=== PATIENT | male | born 1935 ===

== ENCOUNTER 2017-07-04 12:40 | Emergency (ER) | payer OTHER ==
[~2017-07-04] VITALS: Ht 172.7 cm; Wt 117.9 kg
[~2017-07-04 12:40] MED LIST: COZAAR50 MG; CRESTOR5 MG; GABAPENTIN600 MG; HUMALOG MIX 50/53 ML SQ; HYZAAR 100-251 UDTAB PO; LANTUS 30 UNIT; LIRICA; METFORMIN HCL850 MG; MICARDIS20 MG PO; NOVOLOG100 U/ML; ZOLOFT25 MG; [UNRECOGNIZED DRUG - OTHER]
[2017-07-04] MEDS ORDERED: FENOFIBRATE145 MG (13:12)
[2017-07-04] MEDS ORDERED: TOPROL XL100 M1 (13:12)
[2017-07-04] MEDS ORDERED: SULINDAC150 MG (13:13)
[2017-07-04] MEDS ORDERED: LANTUS SOL100 UNIT/1 (13:14)
[2017-07-04] MEDS ORDERED: HUMALOG100 UNIT/1 (13:15)
== END 2017-07-04 16:38 | disposition home or self-care (01) ==
LOC: ER 12:40
DX: S00.83XA Contusion of other part of head, initial encounter (principal); S20.211A Contusion of right front wall of thorax, initial encounter; S60.812A Abrasion of left wrist, initial encounter; W01.198A Fall on same level from slipping, tripping and stumbling with subsequent striking against other object, initial encounter; Y93.01 Activity, walking, marching and hiking; Y92.480 Sidewalk as the place of occurrence of the external cause; Y99.8 Other external cause status

== ENCOUNTER 2018-09-19 10:02 | Outpatient (CLI) | payer OTHER ==
[~2018-09-19 10:02] MED LIST changes: +FENOFIBRATE145 MG; +HUMALOG100 UNIT/1; +LANTUS SOL100 UNIT/1; +SULINDAC150 MG; +TOPROL XL100 M1
== END 2018-09-19 10:12 | disposition home or self-care (01) ==
LOC: TOM 10:02
DX: N28.1 Cyst of kidney, acquired (principal)

== ENCOUNTER 2018-12-21 07:57 | Emergency (ER) | payer OTHER ==
[~2018-12-21] VITALS: Ht 172.7 cm; Wt 113.4 kg
== END 2018-12-21 15:07 | disposition home or self-care (01) ==
LOC: ER 07:57
DX: R42 Dizziness and giddiness (principal)

== ENCOUNTER → 2019-03-19 | Outpatient (CLI) | payer OTHER | END | disposition home or self-care (01) | LOC: TOM 12:59 → NUCLEAR 03-26 09:00 | DX: M54.5 Low back pain (principal); M48.07 Spinal stenosis, lumbosacral region ==

== ENCOUNTER 2019-03-26 08:35 | Outpatient (CLI) | payer OTHER | END 2019-03-26 09:20 | disposition home or self-care (01) | LOC: NUCLEAR 08:35 | DX: C61 Malignant neoplasm of prostate (principal) | CPT/HCPCS: 78306; A9503 ==

== ENCOUNTER 2020-01-19 06:48 | Emergency (ER) | payer OTHER ==
[~2020-01-19] VITALS: Ht 172.7 cm; Wt 113.4 kg
[2020-01-19] MEDS ORDERED: TAMS0.4C PO (13:56)
[2020-01-19] MEDS ORDERED: KETO10TA2 PO (13:56)
== END 2020-01-19 14:23 | disposition home or self-care (01) ==
LOC: ER 06:48
DX: N20.0 Calculus of kidney (principal); R10.32 Left lower quadrant pain

== ENCOUNTER 2020-04-18 11:57 | Outpatient (CLI) | payer OTHER ==
[~2020-04-18 11:57] MED LIST changes: +KETO10TA2 PO; +TAMS0.4C PO
== END 2020-04-18 11:59 | disposition home or self-care (01) ==
LOC: RAD 11:57
PROVIDERS: ATTEND Specialist
DX: N20.1 Calculus of ureter (principal); N40.1 Benign prostatic hyperplasia with lower urinary tract symptoms

== ENCOUNTER 2020-11-01 08:00 | Outpatient (CLI) | payer OTHER | END 2020-11-01 08:30 | disposition home or self-care (01) | LOC: PPH VACUNA 08:00 | PROVIDERS: ATTEND Emergency Medicine Pediatric Emergency Medicine | DX: Z23 Encounter for immunization (principal) ==

== ENCOUNTER 2021-03-20 14:06 | Outpatient (CLI) | payer OTHER | END 2021-03-20 14:12 | disposition home or self-care (01) | LOC: RAD 14:06 | PROVIDERS: ATTEND Obstetrics & Gynecology | DX: M79.5 Residual foreign body in soft tissue (principal) ==

== ENCOUNTER 2021-06-16 23:28 | Emergency (ER) | payer OTHER ==
[~2021-06-16] VITALS: Ht 172.7 cm; Wt 113.4 kg
== END 2021-06-17 12:43 | disposition home or self-care (01) ==
LOC: ER 23:28
DX: S01.121A Laceration with foreign body of right eyelid and periocular area, initial encounter (principal); W18.30XA Fall on same level, unspecified, initial encounter; Y93.9 Activity, unspecified; Y92.013 Bedroom of single-family (private) house as the place of occurrence of the external cause; E11.40 Type 2 diabetes mellitus with diabetic neuropathy, unspecified; Z79.4 Long term (current) use of insulin; J32.0 Chronic maxillary sinusitis; I10 Essential (primary) hypertension; Z85.46 Personal history of malignant neoplasm of prostate

== ENCOUNTER 2021-06-24 15:04 | Emergency (ER) | payer OTHER ==
[~2021-06-24] VITALS: Ht 172.7 cm; Wt 113.4 kg
== END 2021-06-24 17:17 | disposition home or self-care (01) ==
LOC: ER 15:04
DX: Z48.02 Encounter for removal of sutures (principal)